=== PATIENT | female | born 1955 | race Caucasian/White ===

== ENCOUNTER 2018-09-21 19:42 | Emergency (ER) | payer BC ==
--- NOTE | 2018-09-21 20:54 | EDM.PDOC ---
ED HPI GENERAL MEDICAL PROBLEM - General Chief Complaint: Cardiovascular Problem Stated Complaint: hypertension Time Seen by Provider: 09/21/18 19:48 Source of Information: Reports: Patient, RN, RN Notes Reviewed History Limitations: Reports: No Limitations - History of Present Illness INITIAL COMMENTS - FREE TEXT/NARRATIVE: Patient presents to the ED at [facility] for the evaluation of elevated blood pressure. Patient states her normal baseline is 125-130, but today it has been running 160's-180's. She did forget to take her morning blood pressure medication. She states her vision was blurry with activity. She does not have any chest pain or SOB. No dizziness or headache. She concerned because of her hx of a CVA. She feels somewhat anxious knowing her BP is higher than usual. She did take her evening dose of Labetalol around 6pm. Denies any focal neurological deficits. Denies any N/V. She states she feels a little jittery. Otherwise, no other concerns. Onset: Today Onset Date: 09/21/18 - Related Data Allergies Allergy/AdvReac Type Severity Reaction Status Date / Time No Known Allergies Allergy Verified 09/21/18 20:42 Home Meds: Home Meds Aspirin [Adult Low Dose Aspirin EC] 81 mg PO DAILY 01/02/15 [History] Flaxseed 1 tbs PO DAILY 01/02/15 [History] Labetalol [Normodyne] 100 mg PO BID 01/02/15 [History] amLODIPine [Norvasc] 10 mg PO BEDTIME 01/02/15 [History] Multivitamin [Daily Vitamin] 1 tab PO DAILY 01/14/15 [History] Past Medical History Cardiovascular History: Reports: Hypertension Other Cardiovascular History: slightly enlarged heart Other Gastrointestinal History: fm hx colon ca Other Genitourinary History: CKD Other Musculoskeletal History: numbness of toes, lipoma of arm Neurological History: Reports: CVA Other Neuro History: dizziness, familial tremor, Other Endocrine/Metabolic History: hyperaldosteronism, malaise and fatigue - Past Surgical History Other Endocrine Surgeries/Procedures: adrenal gland removal - january 2009 Social & Family History - Tobacco Use Smoking Status *Q: Never Smoker ED ROS GENERAL - Review of Systems Review Of Systems: ROS reveals no pertinent complaints other than HPI. ED EXAM, GENERAL - Physical Exam Exam: See Below Exam Limited By: No Limitations General Appearance: Alert, No Apparent Distress Eye Exam: Bilateral Eye: EOMI, Normal Inspection, PERRL Head: Atraumatic, Normocephalic Respiratory/Chest: No Respiratory Distress, Lungs Clear, Normal Breath Sounds Cardiovascular: Normal Peripheral Pulses, Regular Rate, Rhythm Peripheral Pulses: 2+: Radial (L), Radial (R) GI/Abdominal: Normal Bowel Sounds, Soft, Non-Tender Neurological: Alert, Oriented Psychiatric: Anxious Skin Exam: Warm, Dry, Intact, Normal Color EKG INTERPRETATION EKG Date: 09/21/18 Time: 21:39 Rhythm: NSR Rate (Beats/Min): [address] [place]: Normal P-Wave: Present QRS: Normal ST-T: Normal QT: Normal [place]/PQ Interval: 0.15 Comparison: No Change EKG Interpretation Comments: 1. NSR 2. Nonspecific T-wave abnormality Course - Vital Signs Last Recorded V/S: Last Vital Signs Temp 37.3 C 09/21/18 20:44 Pulse 81 09/21/18 20:44 Resp 18 09/21/18 20:44 BP 164/82 H 09/21/18 20:44 Pulse Ox 99 09/21/18 20:44 - Orders/Labs/Meds Orders: Active Orders 24 hr Category Date Time Status EKG 12 Lead [EKG Documentation Completion] [RC] STAT Care 09/21/18 20:52 Active Head wo Cont [CT] Stat Exams 09/21/18 20:53 Taken Labs: Laboratory Tests 09/21/18 09/21/18 Range/Units 21:01 21:01 WBC 9.1 (4.0-10.0) x10^3/uL RBC 4.43 (4.00-5.50) x10^6/uL Hgb 13.1 (12.0-16.0) g/dL Hct 40.0 (33.0-47.0) % MCV 90.3 (78.0-93.0) fL MCH 29.6 (26.0-32.0) pg MCHC 32.8 (32.0-36.0) g/dL RDW Coeff of Naun 13.6 (10.0-15.0) % Plt Count 210 (130-400) x10^3/uL Neut % (Auto) 73.4 (50.0-80.0) % Lymph % (Auto) 17.8 L (25.0-50.0) % [place] % (Auto) 6.0 (2.0-11.0) % Eos % (Auto) 2.4 (0.0-4.0) % Baso % (Auto) 0.4 (0.2-1.2) % Sodium 141 (136-145) mmol/L Potassium 4.8 (3.5-5.1) mmol/L Chloride 106 (98-107) mmol/L Carbon Dioxide 23 (21-32) mmol/L Anion Gap 16.8 (10-20) mmol/L BUN 35 H (7-18) mg/dL Creatinine 1.6 H (0.55-1.02) mg/dL Est Cr Clr Drug Dosing TNP Estimated GFR (MDRD) 33 Glucose 102 (74-106) mg/dL Calcium 9.6 (8.5-10.1) mg/dL - Radiology Interpretation Free Text/Narrative:: CT Head: No acute intracranial disease See scanned report in EMR for details CT Results Date: 09/21/18 CT Results Time: 21:32 Departure - Departure Time of Disposition: 21:42 Disposition: Home, Self-Care 01 Reason for Transfer *Q: Other Condition: Good Clinical Impression: Elevated blood pressure reading with diagnosis of hypertension Instructions: Hypertension Referrals: Maritza Aguilar MD [Primary Care Provider] - Forms: ED Department Discharge Additional Instructions: 1. Stay well hydrated and rest 2. Continue with your current medications at home 3. All testing was normal today 4. Recommend a follow up within a week with your PCP 5. Call us with any question or concerns - Problem List Review Problem List Initiated/Reviewed/Updated: Yes - My Orders Last 24 Hours: My Active Orders 09/21/18 20:52 EKG 12 Lead [EKG Documentation Completion] [RC] STAT 09/21/18 20:53 Head wo Cont [CT] Stat - Assessment/Plan Last 24 Hours: My Active Orders 09/21/18 20:52 EKG 12 Lead [EKG Documentation Completion] [RC] STAT 09/21/18 20:53 Head wo Cont [CT] Stat Assessment:: Elevated blood pressure reading with the diagnosis of hypertension Plan: CT and labs normal. No acute emergency found. No changes with any medications. Possible elevated blood pressure related to anxiety/stressful situations at home. Recommend followup with PCP in a week.
[2018-09-21 21:20] LABS: CHLORIDE,CL 106 mmol/L (98-107); SODIUM,NA 141 mmol/L (136-145)
[2018-09-21 21:21] LABS: ANION GAP 16.8 mmol/L (10-20)
[2018-09-21 21:58] VITALS: BP 141/83
[2018-09-21] MEDS ORDERED: Take Home: LORazepam 0.5 MG Tab, 2 Tab Pack PO ONE (21:58)
--- NOTE | 2018-09-22 09:03 | CT ---
[id number] CT/CT Head WO IV EXAM: NONCONTRAST HEAD CT INDICATION: Blurry vision, history of cerebrovascular accident and elevated blood pressure. COMPARISON: None. DISCUSSION: The ventricles and sulci are normal in size and configuration. Mild chronic small vessel ischemic changes with periventricular white matter hypoattenuation. A 9 x 5 mm hypodense focus in the left basal ganglia could represent a chronic lacunar infarct or a prominent perivascular space. No mass effect or midline shift. No acute hemorrhage or extra-axial fluid collection. No acute territorial infarct is identified. A limited look at the orbits and paranasal sinuses is unremarkable. IMPRESSION: 1. No acute findings. 2. Mild chronic small vessel ischemic changes. Luis Aquino MD 09/22/18 0902 Thank you for allowing us to participate in the care of your patient.
== END 2018-09-21 22:05 | disposition home or self-care (01) ==
LOC: VM.ED 19:42
DX: I12.9 Hypertensive chronic kidney disease with stage 1 through stage 4 chronic kidney disease, or unspecified chronic kidney disease (principal); N18.9 Chronic kidney disease, unspecified; Z86.73 Personal history of transient ischemic attack (TIA), and cerebral infarction without residual deficits; Z79.82 Long term (current) use of aspirin; Z79.899 Other long term (current) drug therapy
CPT/HCPCS: 36415; 70450; 80048; 85025; 93005; 99284; A9270

== ENCOUNTER 2022-10-15 10:12 | Day surgery (SDC) | payer BC, MEDICARE ==
[~2022-10-15 10:12] MED LIST: Lactated Ringers 1,000 ML IV SCH
[2022-10-15] MEDS ORDERED: Propofol 200 MG/20 ML SDV ONE (11:06)
[2022-10-15] MEDS ORDERED: fentaNYL 100 MCG/2 ML SDV ONE (11:06)
[2022-10-15 13:53] VITALS: BP 122/64; PULSE 69
== END 2022-10-15 13:45 | disposition home or self-care (01) ==
LOC: VM.SDS 10:12
PROVIDERS: ATTEND Family Medicine
DX: Z12.11 Encounter for screening for malignant neoplasm of colon (principal); I12.9 Hypertensive chronic kidney disease with stage 1 through stage 4 chronic kidney disease, or unspecified chronic kidney disease; N18.30 Chronic kidney disease, stage 3 unspecified; E78.00 Pure hypercholesterolemia, unspecified; E66.9 Obesity, unspecified; E21.3 Hyperparathyroidism, unspecified; E26.9 Hyperaldosteronism, unspecified; Z80.0 Family history of malignant neoplasm of digestive organs; Z98.890 Other specified postprocedural states; Z79.899 Other long term (current) drug therapy
CPT/HCPCS: 00812; J2704; J3010; J7120